=== PATIENT | female | born 1985 | race Caucasian/White ===

== ENCOUNTER 2017-08-19 18:39 | Emergency (ER) | payer OTHER, MEDICAID, SELFPAY ==
[2017-08-19 18:39] VITALS: BP 120/84; PULSE 84; RESP 16; TEMP 36.1; O2SAT 99; BMI 23.6
--- NOTE | 2017-08-19 19:30 | ED.VISSUMM ---
- ER Visit Summary Date of Service: 08/19/17 Chief Complaint: rash History of Present Illness: The patient is a 31 F presents with an itchy rash for 8 days. No systemic complaints. Physical Examination: Otherwise normal exam, she has raised blanching nonerythematous lesions all over her arms legs and trunk. Emergency Department Course and Treatment: This appears to be a benign rash, I cannot exclude a viral etiology, or more systemic issues like guttate psoriasis. Regardless she appears quite well and she has a dermatology appointment in 12 hours. She refuses steroids, she is nursing. She has taken Benadryl at home. I will discharge her in stable condition Treatment Plan: [] Disposition: Discharged stable condition Impression: Nonspecific dermatitis This note was generated with [employer] dictation software. It may contain incorrect words, spelling, and punctuation that were not noted in review of the chart prior to signing ED Disposition - Plan for ED Patient: Disposition: Home or Assisted Living Chief Complaint: Rash Referrals: Tabby Hay NP-C [Primary Care Provider] - Additional Instructions: If you have fever chills, shortness of breath or any other symptoms return to the emergency department otherwise follow up with your computer discovery teacher
[2017-08-19 19:47] VITALS: RESP 18
== END 2017-08-19 19:53 | disposition home or self-care (01) ==
PROVIDERS: Emergency Provider Emergency Medicine; Family Provider Nurse Practitioner Family; PCP Nurse Practitioner Family
DX: L30.9 Dermatitis, unspecified (principal)
CPT/HCPCS: 99282

== ENCOUNTER → 2018-06-23 15:01 | Outpatient (CLI) | payer OTHER, SELFPAY ==
[2017-12-10 10:25] VITALS: BMI 24.0
[2018-06-23 16:20] LABS: hCG Titer Quant., Serum < 1 mIU/mL (1-3)
== END ==
PROVIDERS: Family Provider Nurse Practitioner Family; PCP Nurse Practitioner Family; Referring Provider Nurse Practitioner Women's Health; Visit Provider Nurse Practitioner Women's Health
DX: Z34.90 Encounter for supervision of normal pregnancy, unspecified, unspecified trimester (principal)
CPT/HCPCS: 36415; 84702

== ENCOUNTER → 2018-10-17 11:04 | Outpatient (CLI) | payer OTHER, SELFPAY ==
[2018-10-17 09:58] VITALS: BMI 24.0
[2018-10-17 11:40] LABS: Estradiol 35.7 pg/mL; Follicle Stimulating Hormone 6.4 mIU/mL; Prolactin 5.3 ng/mL; T4 Free Direct 0.89 ng/dL (0.76-1.46); Thyroid Stim Hormone (TSH) 2.62 uIU/mL (0.358-3.74)
[2018-10-20 11:41] LABS: Testosterone Free 0.6 pg/mL (0.0-4.2)
== END ==
PROVIDERS: Family Provider Nurse Practitioner Family; PCP Nurse Practitioner Family; Referring Provider Obstetrics & Gynecology; Visit Provider Obstetrics & Gynecology
DX: N97.0 Female infertility associated with anovulation (principal); N91.2 Amenorrhea, unspecified
CPT/HCPCS: 36415; 82670; 83001; 84146; 84402; 84439; 84443

== ENCOUNTER → 2019-04-15 11:55 | Outpatient (CLI) | payer OTHER, SELFPAY ==
[2019-04-15 11:10] VITALS: BMI 25.3
[2019-04-15 14:13] LABS: Absolute Lymphocyte Count 1.79 X10^3/uL (0.83-4.51); Absolute Neutrophil Count 4.2 X10^3/uL (2.0-7.7); Basophil# 0.03 X10^3/uL; Basophil% 0.4 % (0-1); Eosinophil# 0.17 X10^3/uL; Eosinophils% 2.5 % (0-5); Hematocrit 41.6 % (37-47); Hemoglobin 13.5 g/dL (12.0-15.0); Lymphocyte # 1.79 X10^3/ul (4.0); Lymphocyte % 26.7 % (19-41); Mean Corp Hgb Conc 32.5 g/dL (32-36); Mean Corpuscular Hgb 28.9 pg (27.0-32.0); Mean Corpuscular Volume 89.1 fL (81-99); Mean Platelet Vol. 11.5 fl (6.2-12.0); Monocyte# 0.51 X10^3/uL; Monocyte% 7.6 % (0-10); NRBC Flagged by Analyzer 0 % (0-5); Neutrophil # 4.18 X10^3/uL (2.7-7.7); Neutrophil % 62.5 % (47-70); Platelet Count 221 K/mm3 (150-450); RBC Distribution Width CV 12.3 % (11.6-14.6); Red Blood Count 4.67 M/mm3 (4.2-5.4); White Blood Count 6.7 K/mm3 (4.4-11.0)
[2019-04-15 14:30] LABS: AST(SGOT) 11 U/L (15-37); Alanine Aminotransfer ALT/SGPT 24 U/L (13-56); Albumin, Serum 4.2 g/dL (3.2-5.0); Alkaline Phosphatase 89 U/L (45-117); Anion Gap 4 (5-15); BUN 11 mg/dL (7-18); BUN/Creat Ratio 16.4 RATIO (10-20); Calcium,Total 9.3 mg/dL (8.5-10.1); Chloride 108 mmol/L (98-107); Creatinine, Serum 0.67 mg/dL (0.55-1.02); EST Glomerular Filtration Rate 108 mL/min (>60); Est Glom Filt Rate - Afr Amer 130 mL/min (>60); Glucose 80 mg/dL (74-106); Protein, Total 8.2 g/dL (6.4-8.2); Sodium Level 140 mmol/L (136-145)
[2019-04-15 14:34] LABS: Vitamin D,25 Hydroxy 27.9 ng/mL (29.95-100.01)
== END ==
PROVIDERS: PCP Internal Medicine; Referring Provider Internal Medicine; Visit Provider Internal Medicine
DX: F41.1 Generalized anxiety disorder (principal); R53.81 Other malaise; R53.83 Other fatigue
CPT/HCPCS: 36415; 80053; 82306; 82652; 85025

== ENCOUNTER → 2019-10-14 11:57 | Outpatient (CLI) | payer OTHER, SELFPAY ==
[2019-10-14 11:11] VITALS: BMI 27.3
== END ==
PROVIDERS: PCP Internal Medicine; Referring Provider Internal Medicine; Visit Provider Internal Medicine
DX: J02.9 Acute pharyngitis, unspecified (principal)
CPT/HCPCS: 87880

== ENCOUNTER → 2019-10-30 12:20 | Outpatient (CLI) | payer OTHER, SELFPAY ==
[2019-10-30 11:52] VITALS: BMI 24.0
== END ==
PROVIDERS: PCP Internal Medicine; Visit Provider Nurse Practitioner Women's Health
DX: R10.2 Pelvic and perineal pain (principal); N89.8 Other specified noninflammatory disorders of vagina; N92.6 Irregular menstruation, unspecified
CPT/HCPCS: 87070; 87205

== ENCOUNTER → 2019-11-10 15:18 | Outpatient (CLI) | payer OTHER, SELFPAY ==
[2019-10-30 11:52] VITALS: BMI 24.0
--- NOTE | 2019-11-10 15:19 | US_ITS ---
STUDY: ULTRASOUND OF THE FEMALE PELVIS - COMPLETE REASON FOR EXAM: Female, 33 years old. IRREG MENSES AND PAIN LMP: 10/19/2019 TECHNIQUE: Transabdominal and endovaginal TECHNICAL QUALITY: Adequate. COMPARISON: None. FINDINGS: The uterus is retroverted and is in a midline position. The uterus measures 6.9 x 5.7 x 4.4 cm. Normal uterine cervix. The endometrium measures 8 mm in thickness, and is slightly heterogeneous. There is no demonstrated endometrial mass. There is no demonstrated myometrial mass. The patient does not have an I.U.D. The right ovary is visualized. The right ovary measures 4.5 x 2.3 x 2.5 cm. There is no right ovarian cyst or ovarian mass. There is no visualized right adnexal mass or complex lesion. There is normal arterial and normal venous vascularity. The left ovary is visualized. The left ovary measures 3.4 x 3.1 x 2.2 cm. There is a left adnexal cyst measuring 2.1 x 2.5 x 1.9 cm. There is normal arterial and normal venous vascularity. There is mild fluid in the cul-de-sac. The urinary bladder measures 652 cc in volume. US/Pelvic (Non ) IMPRESSION: Retroverted uterus. Slightly heterogeneous endometrium. Left adnexal cyst. Electronically Signed: Shaheen Cohen DO at 20:33 EDT Tel [phone], Service support ,
--- NOTE | 2019-11-10 15:19 | US_ITS ---
STUDY: ULTRASOUND OF THE FEMALE PELVIS - COMPLETE REASON FOR EXAM: Female, 33 years old. IRREG MENSES AND PAIN LMP: 10/19/2019 TECHNIQUE: Transabdominal and endovaginal TECHNICAL QUALITY: Adequate. COMPARISON: None. FINDINGS: The uterus is retroverted and is in a midline position. The uterus measures 6.9 x 5.7 x 4.4 cm. Normal uterine cervix. The endometrium measures 8 mm in thickness, and is slightly heterogeneous. There is no demonstrated endometrial mass. There is no demonstrated myometrial mass. The patient does not have an I.U.D. The right ovary is visualized. The right ovary measures 4.5 x 2.3 x 2.5 cm. There is no right ovarian cyst or ovarian mass. There is no visualized right adnexal mass or complex lesion. There is normal arterial and normal venous vascularity. The left ovary is visualized. The left ovary measures 3.4 x 3.1 x 2.2 cm. There is a left adnexal cyst measuring 2.1 x 2.5 x 1.9 cm. There is normal arterial and normal venous vascularity. There is mild fluid in the cul-de-sac. The urinary bladder measures 652 cc in volume. US/Transvaginal Non- IMPRESSION: Retroverted uterus. Slightly heterogeneous endometrium. Left adnexal cyst. Electronically Signed: Shaheen Cohen DO at 20:33 EDT Tel [phone], Service support ,
== END ==
PROVIDERS: PCP Internal Medicine; Referring Provider Nurse Practitioner Women's Health; Visit Provider Nurse Practitioner Women's Health
DX: R10.2 Pelvic and perineal pain (principal); N92.6 Irregular menstruation, unspecified
CPT/HCPCS: 76830; 76856

== ENCOUNTER → 2020-02-05 11:39 | Outpatient (CLI) | payer OTHER, SELFPAY ==
[2020-02-05 10:56] VITALS: BMI 27.4
--- NOTE | 2020-02-05 11:41 | RAD_ITS ---
STUDY: X-RAY - ORBITS REASON FOR EXAM: Female, 34 years old. Pt states her phone hit her eye last night -- bruising/redness of the right eye and partially swollen shut TECHNIQUE: 4 view(s) of the orbits were obtained. COMPARISON: None. FINDINGS: Normal bilateral orbits without a metallic orbital foreign body. Normal visualized facial bones. Normal paranasal sinuses. The soft tissue structures are unremarkable. RAD/Orbits Min 4 Views IMPRESSION: No demonstrated metallic orbital foreign body. The patient is cleared for an MRI examination. Electronically Signed: Breezy Zarate, at 12:14 EST , Service support ,
--- NOTE | 2020-02-05 11:41 | RAD_ITS ---
STUDY: X-RAY - FACIAL BONES REASON FOR STUDY: Female, 34 years old. Pt states her phone hit her eye last night -- bruising/redness of the right eye and partially swollen shut TECHNIQUE: 4 view(s) of the facial bones. COMPARISON: None. FINDINGS: Normal bilateral frontozygomatic and zygomatic-temporal arches. Normal bilateral medial and inferior orbital negro. Normal bilateral orbits. Normal visualized nasal bones. Normal anterior nasal spine. The remaining visualized osseous structures are normal. Normal visualized paranasal sinuses. RAD/Facial Bones min 3 Views IMPRESSION: Normal x-ray examination of the facial bones. Electronically Signed: Breezy Zarate, at 12:33 EST , Service support ,
== END ==
PROVIDERS: PCP Internal Medicine; Referring Provider Nurse Practitioner Family; Visit Provider Nurse Practitioner Family
DX: S05.91XA Unspecified injury of right eye and orbit, initial encounter (principal)
CPT/HCPCS: 70150; 70200

== ENCOUNTER → 2020-02-17 16:30 | Outpatient (CLI) | payer OTHER, SELFPAY ==
[2020-02-05 10:56] VITALS: BMI 27.4
[2020-02-17 17:39] LABS: Absolute Lymphocyte Count 2.15 X10^3/uL (0.83-4.51); Absolute Neutrophil Count 4.9 X10^3/uL (2.0-7.7); Basophil# 0.04 X10^3/uL; Basophil% 0.5 % (0-1); Eosinophil# 0.19 X10^3/uL; Eosinophils% 2.4 % (0-5); Hematocrit 40.3 % (37-47); Hemoglobin 13.1 g/dL (12.0-15.0); Lymphocyte # 2.15 X10^3/ul (4.0); Lymphocyte % 27.5 % (19-41); Mean Corp Hgb Conc 32.5 g/dL (32-36); Mean Corpuscular Volume 89.2 fL (81-99); Monocyte# 0.53 X10^3/uL; Monocyte% 6.8 % (0-10); NRBC Flagged by Analyzer 0 % (0-5); Neutrophil # 4.87 X10^3/uL (2.7-7.7); Neutrophil % 62.3 % (47-70); Platelet Count 268 K/mm3 (150-450); Red Blood Count 4.52 M/mm3 (4.2-5.4); White Blood Count 7.8 K/mm3 (4.4-11.0)
[2020-02-17 17:57] LABS: Erythrocyte Sedimentation Rate 10 mm/hr (0-20)
[2020-02-17 18:10] LABS: Estradiol 48.5 pg/mL; Prolactin 5.4 ng/mL; Vitamin D,25 Hydroxy 21.1 ng/mL
[2020-02-17 18:20] LABS: AST(SGOT) 17 U/L (15-37); Alanine Aminotransfer ALT/SGPT 25 U/L (13-56); Albumin, Serum 4.1 g/dL (3.2-5.0); Alkaline Phosphatase 94 U/L (45-117); Anion Gap 7 (5-15); BUN 13 mg/dL (7-18); BUN/Creat Ratio 20.2 RATIO (10-20); CRP < 2.90 mg/L (0.0-3.0); Chloride 104 mmol/L (98-107); Creatinine, Serum 0.64 mg/dL (0.55-1.02); EST Glomerular Filtration Rate 112 mL/min (>60); Est Glom Filt Rate - Afr Amer 135 mL/min (>60); Glucose 77 mg/dL (74-106); Potassium 3.7 mmol/L (3.5-5.1); Protein, Total 8.1 g/dL (6.4-8.2); Rheumatoid Factor < 10.0 IU/mL (<15); Sodium Level 138 mmol/L (136-145); T4 Free Direct 0.83 ng/dL (0.76-1.46); Thyroid Stim Hormone (TSH) 3.43 uIU/mL (0.358-3.74)
[2020-02-23 16:17] LABS: ANTINUCLEAR ANTIBODIES DIRECT Negative (Negative)
== END ==
PROVIDERS: Nurse Practitioner Family; Nurse Practitioner Women's Health; PCP Internal Medicine; Referring Provider Internal Medicine; Visit Provider Internal Medicine
DX: E55.9 Vitamin D deficiency, unspecified (principal); R53.83 Other fatigue; M19.90 Unspecified osteoarthritis, unspecified site; F41.1 Generalized anxiety disorder; R10.2 Pelvic and perineal pain; N92.6 Irregular menstruation, unspecified; Z20.828 Contact with and (suspected) exposure to other viral communicable diseases; Z13.29 Encounter for screening for other suspected endocrine disorder
CPT/HCPCS: 36415; 80053; 82306; 82670; 84146; 84439; 84443; 85025; 85652; 86038; 86140; 86225; 86235; 86431; 86769

== ENCOUNTER → 2020-02-29 09:21 | Outpatient (CLI) | payer OTHER, SELFPAY ==
[2020-02-05 10:56] VITALS: BMI 27.4
--- NOTE | 2020-02-29 09:23 | US_ITS ---
STUDY: SUPERFICIAL ULTRASOUND - CERVICAL REGION. REASON FOR EXAM: Female, 34 years old. NECK PAIN TECHNIQUE: A superficial ultrasound was performed with real-time and static whitman-scale imaging. COMPARISON: None. FINDINGS: The right and left side of the cervical region was examined by ultrasound. 2. Lymph nodes are seen in the right cervical region. The larger measures 2.6 times by 0.8 cm x 0.5 cm. This appears to be a benign lymph node. There is a 1.6 cm x 0.7 cm x 0.6 cm benign-appearing lymph node in the left cervical region. US/Head/Neck Soft Tissue IMPRESSION: Small bilateral benign-appearing cervical lymph nodes. Electronically Signed: Breezy Zarate, at 9:26 EST , Service support ,
== END ==
PROVIDERS: PCP Internal Medicine; Referring Provider Internal Medicine; Visit Provider Internal Medicine
DX: M54.2 Cervicalgia (principal)
CPT/HCPCS: 76536

== ENCOUNTER → 2020-10-06 11:55 | Outpatient (CLI) | payer OTHER, SELFPAY ==
[2020-10-06 11:18] VITALS: BMI 28.3
[2020-10-06 15:00] LABS: Absolute Lymphocyte Count 2.03 X10^3/uL (0.83-4.51); Absolute Neutrophil Count 4.5 X10^3/uL (2.0-7.7); Basophil# 0.04 X10^3/uL; Basophil% 0.5 % (0-1); Eosinophil# 0.29 X10^3/uL; Eosinophils% 3.8 % (0-5); Hematocrit 38.2 % (37-47); Hemoglobin 12.7 g/dL (12.0-15.0); Lymphocyte # 2.03 X10^3/ul (0.83-4.51); Lymphocyte % 26.7 % (19-41); Mean Corp Hgb Conc 33.2 g/dL (32-36); Mean Corpuscular Volume 87.2 fL (81-99); Mean Platelet Vol. 11.4 fl (6.2-12.0); Monocyte# 0.67 X10^3/uL; Monocyte% 8.8 % (0-10); NRBC Flagged by Analyzer 0 % (0-5); Neutrophil # 4.53 X10^3/uL (2.7-7.7); Neutrophil % 59.8 % (47-70); Platelet Count 253 K/mm3 (150-450); RBC Distribution Width CV 12.4 % (11.6-14.6); RBC Distribution Width SD 39.1 fl (35.1-43.9); Red Blood Count 4.38 M/mm3 (4.2-5.4); White Blood Count 7.6 K/mm3 (4.4-11.0)
[2020-10-06 15:22] LABS: Vitamin B12 376 pg/mL (211-911); Vitamin D,25 Hydroxy 35.7 ng/mL
[2020-10-06 15:29] LABS: AST(SGOT) 18 U/L (15-37); Alanine Aminotransfer ALT/SGPT 41 U/L (13-56); Alkaline Phosphatase 115 U/L (45-117); Anion Gap 8 (5-15); BUN 11 mg/dL (7-18); BUN/Creat Ratio 16.1 RATIO (10-20); Calcium,Total 9.2 mg/dL (8.5-10.1); Chloride 104 mmol/L (98-107); Creatinine, Serum 0.68 mg/dL (0.55-1.02); EST Glomerular Filtration Rate 104 mL/min (>60); Est Glom Filt Rate - Afr Amer 126 mL/min (>60); Globulin 3.9 g/dL (2.2-4.2); Glucose 98 mg/dL (74-106); Potassium 3.7 mmol/L (3.5-5.1); Protein, Total 7.9 g/dL (6.4-8.2); Sodium Level 138 mmol/L (136-145); Thyroid Stim Hormone (TSH) 2.72 uIU/mL (0.358-3.74)
[2020-10-06 15:30] LABS: Internal QC Validated? YES +Cl - CLEAR BKGD; Monotest Negative (Negative)
== END ==
PROVIDERS: PCP Internal Medicine; Referring Provider Nurse Practitioner Family; Visit Provider Nurse Practitioner Family
DX: R53.83 Other fatigue (principal); E55.9 Vitamin D deficiency, unspecified; E56.9 Vitamin deficiency, unspecified; R59.0 Localized enlarged lymph nodes
CPT/HCPCS: 36415; 80053; 82306; 82607; 84443; 85025; 86308

== ENCOUNTER → 2020-10-10 13:12 | Outpatient (CLI) | payer OTHER, SELFPAY ==
[2020-10-10 10:15] VITALS: BMI 28.5
[2020-10-12 20:03] LABS: HPV APTIMA, High Risk Negative (Negative)
== END ==
PROVIDERS: Visit Provider Nurse Practitioner Women's Health
DX: Z12.4 Encounter for screening for malignant neoplasm of cervix (principal)
CPT/HCPCS: 87624; 88175; G0145

== ENCOUNTER 2021-05-26 12:22 | Outpatient (CLI) | payer OTHER, SELFPAY ==
--- NOTE | 2021-05-26 12:27 | US_ITS ---
STUDY: ULTRASOUND OF THE FEMALE PELVIS - COMPLETE REASON FOR EXAM: Female, 35 years old. AUB LMP: Unknown. TECHNIQUE: Transabdominal and Transvaginal TECHNICAL QUALITY: Adequate. COMPARISON: None. FINDINGS: The uterus is retroverted and is in a midline position. The uterus measures 7.9 cm x 5.1 cm x 4.7 cm. Normal uterine cervix. The endometrium is thickened and measures 17.3 mm in thickness, and is hyperechoic. There is no demonstrated endometrial mass. There is no demonstrated myometrial mass. I.U.D. - The patient does not have an I.U.D. The right ovary is visualized. The right ovary measures 3 cm x 2.2 cm x 2.5 cm. There is no right ovarian cyst or ovarian mass. There is no visualized right adnexal mass or complex lesion. There is normal arterial and normal venous vascularity. The left ovary is visualized. The left ovary measures 3.5 cm x 2.6 cm x 2.2 cm. There is a 3.2 cm x 2.6 cm x 2 cm left adnexal cyst. There is no visualized left adnexal mass or complex lesion. There is normal arterial and normal venous vascularity. There is no fluid in the cul-de-sac. The pre void volume of the bladder was 43 ml. US/Transvaginal Non- IMPRESSION: Thickened endometrium measuring 17.3 mm. Left adnexal cyst measuring 3.2 cm x 2.6 x 2 cm. Electronically Signed: Breezy Zarate MD at 14:33 EDT ,
--- NOTE | 2021-05-26 12:27 | US_ITS ---
STUDY: ULTRASOUND OF THE FEMALE PELVIS - COMPLETE REASON FOR EXAM: Female, 35 years old. AUB LMP: Unknown. TECHNIQUE: Transabdominal and Transvaginal TECHNICAL QUALITY: Adequate. COMPARISON: None. FINDINGS: The uterus is retroverted and is in a midline position. The uterus measures 7.9 cm x 5.1 cm x 4.7 cm. Normal uterine cervix. The endometrium is thickened and measures 17.3 mm in thickness, and is hyperechoic. There is no demonstrated endometrial mass. There is no demonstrated myometrial mass. I.U.D. - The patient does not have an I.U.D. The right ovary is visualized. The right ovary measures 3 cm x 2.2 cm x 2.5 cm. There is no right ovarian cyst or ovarian mass. There is no visualized right adnexal mass or complex lesion. There is normal arterial and normal venous vascularity. The left ovary is visualized. The left ovary measures 3.5 cm x 2.6 cm x 2.2 cm. There is a 3.2 cm x 2.6 cm x 2 cm left adnexal cyst. There is no visualized left adnexal mass or complex lesion. There is normal arterial and normal venous vascularity. There is no fluid in the cul-de-sac. The pre void volume of the bladder was 43 ml. US/Pelvic (Non ) IMPRESSION: Thickened endometrium measuring 17.3 mm. Left adnexal cyst measuring 3.2 cm x 2.6 x 2 cm. Electronically Signed: Breezy Zarate MD at 14:33 EDT ,
[2021-05-26 14:12] LABS: Estradiol 50.2 pg/mL; Follicle Stimulating Hormone 6.3 mIU/mL; Luteinizing Hormone 12.9 mIU/mL; Prolactin 9.4 ng/mL; Thyroid Stim Hormone (TSH) 2.81 uIU/mL (0.358-3.74)
[2021-05-26 14:22] LABS: NATERA MAILED SPECIMEN
== END 2021-05-26 23:59 | disposition home or self-care (01) ==
PROVIDERS: PCP Internal Medicine; Referring Provider Obstetrics & Gynecology; Visit Provider Obstetrics & Gynecology
DX: N93.9 Abnormal uterine and vaginal bleeding, unspecified (principal); Z80.3 Family history of malignant neoplasm of breast
CPT/HCPCS: 36415; 76830; 76856; 82627; 82670; 83001; 83002; 84146; 84443; 82626

== ENCOUNTER → 2021-06-16 | Outpatient (CLI) | payer OTHER, SELFPAY ==
--- NOTE | 2021-06-16 09:00 | BI_ITS ---
MAMMOGRAPHY - BILATERAL DIAGNOSTIC REASON FOR EXAM: Female, 35 years old. bilateral breast lump PERTINENT HISTORY: Non-contributory. TECHNIQUE: Digital examination. Mediolateral oblique (MLO) and craniocaudad (CC) views of both breasts were obtained. CAD: CAD was performed on this study. COMPARISON: None. FINDINGS: Breast Composition: The breasts are heterogeneously dense, which may obscure small masses. There are no dominant masses or suspicious calcifications. No other significant abnormalities are identified. BI/DIAG MAMM W/CAD, BILAT IMPRESSION: Stable bilateral diagnostic mammogram. ASSESSMENT CATEGORY: BIRADS Category 1: Negative. A letter regarding these results will be sent to the patient by the facility within 30 days. FOLLOW UP RECOMMENDATION: Yearly follow up mammogram recommended. (A) Approximately 10% of breast cancers are not detected by mammography. A normal mammogram should not delay biopsy of a clinically suspicious abnormality. Electronically Signed: Sam Celaya MD at 9:58 EDT ,
== END | disposition home or self-care (01) ==
PROVIDERS: PCP Internal Medicine; Visit Provider Obstetrics & Gynecology
DX: R92.2 Inconclusive mammogram (principal); N63.0 Unspecified lump in unspecified breast
CPT/HCPCS: 77062; 77066; G0279

== ENCOUNTER → 2021-06-16 | Outpatient (CLI) | payer OTHER, SELFPAY ==
--- NOTE | 2021-06-16 | EMB_PTH ---
PATIENT: YAMEL BRIAN LOC: [facility] U#:[id number] AGE/SX: 35/F ROOM: RE06/16/[address]: Dr. Rosalie Bales DO : 1985 BED: DIS: 06/16/2021 SPEC #: [id number] RECD: 06/16/21 12:55 STATUS: ISI WILCOX #: [id number] HIREN: 06/16/21 00:[address]: Rosalie Bales DEPT: SURGICAL PATHOLOGY RECD BY: Azael Carranza ENTERED: 06/16/21 12:55 SP TYPE: ENDOM BX/C [facility] DR: Dr. Eugenia Velazquez MD Tissues: Endometrium, NOS Procedures: Surgery Specimen Level IV HEADER OPERATION: Endometrial biopsy PRE-OP DIAGNOSIS: Abnormal uterine bleeding TISSUE SUBMITTED: Endometrial lining MICROSCOPIC DIAGNOSIS Endometrial biopsy: Scant minute fragments of benign ecto- and endocervical epithelium and mucous. See comment. SJ:siat 06/19/2021 COMMENT Endometrial tissue is not identified. Clinical correlation and appropriate follow up are necessary. MICROSCOPIC DESCRIPTION Slides are reviewed. GROSS DESCRIPTION Received is one container labeled with the patient's name and not further designated. The specimen consists of multiple fragments of talley hemorrhagic mucoid tissue that in aggregate measure 3 x 2.5 x 0.3 cm. The specimen is totally submitted in one cassette. / ELIZABETH:sita 06/16/2021 TC: Cannot code CPT: 04234
== END | disposition home or self-care (01) ==
LOC: LABSPEC 11:33
PROVIDERS: PCP Internal Medicine; Referring Provider Obstetrics & Gynecology; Visit Provider Obstetrics & Gynecology
DX: N93.9 Abnormal uterine and vaginal bleeding, unspecified (principal)
CPT/HCPCS: 88305

== ENCOUNTER → 2021-12-18 | Outpatient (CLI) | payer OTHER, SELFPAY ==
--- NOTE | 2021-12-18 15:53 | US_ITS ---
EXAM: US PELVIS TRANSABDOMINAL AND TRANSVAGINAL, COMPLETE CLINICAL INDICATION: AUB TECHNIQUE: Transabdominal and transvaginal pelvic ultrasound was performed with grayscale and color Doppler imaging. Transvaginal imaging was used for better evaluation of the endometrium and adnexa. This report was created using [employer] report [employer] technology. COMPARISON: None. FINDINGS: Anteverted retroflexed uterus. Uterus measures 10.9 x 6.1 x 4.9 cm with endometrial complex thickness of 11.9 mm with no focal abnormalities associated. No uterine fibroids. Few nabothian cysts of cervix are benign. No adnexal masses. Small free fluid in the pelvic cul-de-sac. There is a heterogeneous and irregular lesion measuring up to 1.4 cm involving the right ovary. This probably represents an involuting corpus luteum cyst. The right ovary itself measures 2.8 x 2.2 x 2.9 cm. There is a 2.9 cm simple cyst involving the left ovary. Left ovary measures 4.0 x 2.9 x 2.7 cm. Visualized bladder is unremarkable. US/Transvaginal Non- IMPRESSION: 1. 12 mm endometrial complex thickness which is uniform in appearance is likely benign. 2. No other findings to explain abnormal uterine bleeding 3. Heterogeneous and irregular lesion measuring up to 1.4 cm involving the right ovary. This probably represents an involuting corpus luteum cyst. 4. Small amount of free fluid in pelvic cul-de-sac is nonspecific . Electronically Signed: Iggy Garcia MD at 20:39 EDT ,
--- NOTE | 2021-12-18 15:53 | US_ITS ---
EXAM: US PELVIS TRANSABDOMINAL AND TRANSVAGINAL, COMPLETE CLINICAL INDICATION: AUB TECHNIQUE: Transabdominal and transvaginal pelvic ultrasound was performed with grayscale and color Doppler imaging. Transvaginal imaging was used for better evaluation of the endometrium and adnexa. This report was created using [employer] report generation technology. COMPARISON: None. FINDINGS: Anteverted retroflexed uterus. Uterus measures 10.9 x 6.1 x 4.9 cm with endometrial complex thickness of 11.9 mm with no focal abnormalities associated. No uterine fibroids. Few nabothian cysts of cervix are benign. No adnexal masses. Small free fluid in the pelvic cul-de-sac. There is a heterogeneous and irregular lesion measuring up to 1.4 cm involving the right ovary. This probably represents an involuting corpus luteum cyst. The right ovary itself measures 2.8 x 2.2 x 2.9 cm. There is a 2.9 cm simple cyst involving the left ovary. Left ovary measures 4.0 x 2.9 x 2.7 cm. Visualized bladder is unremarkable. US/Pelvic (Non ) IMPRESSION: 1. 12 mm endometrial complex thickness which is uniform in appearance is likely benign. 2. No other findings to explain abnormal uterine bleeding 3. Heterogeneous and irregular lesion measuring up to 1.4 cm involving the right ovary. This probably represents an involuting corpus luteum cyst. 4. Small amount of free fluid in pelvic cul-de-sac is nonspecific . Electronically Signed: Iggy Garcia MD at 20:39 EDT ,
== END | disposition home or self-care (01) ==
LOC: US 15:51
PROVIDERS: Referring Provider Obstetrics & Gynecology; Visit Provider Obstetrics & Gynecology
DX: R93.89 Abnormal findings on diagnostic imaging of other specified body structures (principal)
CPT/HCPCS: 76830; 76856

== ENCOUNTER 2022-02-13 13:41 | Observation (INO) | payer OTHER, SELFPAY ==
[2022-02-06 17:17] LABS: Absolute Lymphocyte Count 2.33 X10^3/uL (0.83-4.51); Absolute Neutrophil Count 5.7 X10^3/uL (2.0-7.7); Basophil# 0.06 X10^3/uL; Basophil% 0.7 % (0-1); Eosinophil# 0.24 X10^3/uL; Eosinophils% 2.7 % (0-5); Hematocrit 35.8 % (37-47); Hemoglobin 12.5 g/dL (12.0-15.0); Lymphocyte # 2.33 X10^3/ul (0.83-4.51); Lymphocyte % 25.7 % (19-41); Mean Corp Hgb Conc 34.9 g/dL (32-36); Mean Corpuscular Hgb 30.6 pg (27.0-32.0); Mean Corpuscular Volume 87.7 fL (81-99); Mean Platelet Vol. 10.8 fl (6.2-12.0); Monocyte# 0.73 X10^3/uL; Monocyte% 8.1 % (0-10); NRBC Flagged by Analyzer 0 % (0-5); Neutrophil # 5.66 X10^3/uL (2.7-7.7); Neutrophil % 62.5 % (47-70); Platelet Count 319 K/mm3 (150-450); RBC Distribution Width CV 12.8 % (11.6-14.6); RBC Distribution Width SD 40.3 fl (35.1-43.9); Red Blood Count 4.08 M/mm3 (4.2-5.4); White Blood Count 9.1 K/mm3 (4.4-11.0)
[2022-02-06 17:28] LABS: Prothrombin Time (Protime)PT. 12.4 SECONDS (11.7-14.9)
[2022-02-06 17:29] LABS: Partial Thromboplast Time 30.7 Seconds (24.1-36.2)
[2022-02-06 19:33] LABS: AST(SGOT) 20 U/L (15-37); Alanine Aminotransfer ALT/SGPT 33 U/L (13-56); Albumin, Serum 3.5 g/dL (3.2-5.0); Alkaline Phosphatase 106 U/L (45-117); Bilirubin, Direct < 0.05 mg/dL (0.00-0.30); Magnesium 2.3 mg/dL (1.6-2.6); Protein, Total 7.5 g/dL (6.4-8.2)
--- NOTE | 2022-02-12 11:40 | PCM.HP.BLA ---
History and Physical Date of Admission: 02/13/22 Intake Vital Signs ? 02/01/2212:50 02/01/2212:50 Height 5 ft 3 in 5 ft 3 in Weight: 166 lb ? BMI 29.4 ? BP 111/72 ? Intake Visit Reasons:?pre op International Sourcing Manager Required: No Is patient in pain?: No Allergies amoxicillin Allergy (Intermediate, Verified 01/31/22 12:49) Unknownadhesive tape Allergy (Mild, Verified 01/31/22 12:49) Rashlatex Allergy (Mild, Verified 01/31/22 12:49) RashPenicillins Allergy (Verified 01/31/22 12:49) Unknown Medications multivitamin 1 tab PO DAILY 04/15/19 [History Confirmed 01/31/22] escitalopram oxalate 5 mg tablet (Lexapro) 5 mg PO DAILY #90 tabs 07/06/21 [Rx Confirmed 01/31/22] medroxyprogesterone 5 mg tablet (Provera) 5 mg PO DAILY 90 days #90 tabs 12/06/21 [Rx Confirmed 01/31/22] omeprazole 20 mg capsule,delayed release 20 mg PO DAILY 01/31/22 [History Confirmed 01/31/22] Post menopausal: No Patient : No : No [facility] Medical History? Anxiety Chronic headaches Fatigue GERD (gastroesophageal reflux disease) Hives Hypersomnia pre cancerous area on skin Seasonal allergies Vitamin deficiency Surgical History? H/O section Family History? Grandfather Arthritis Heart diseaseGrandmother Breast cancer Colon cancer Uterine cancerMother Melanoma PCOS (polycystic ovarian syndrome) Social History? number of children:? 1 current occupational status:? unemployed Smoking Status:? Never smoker alcohol intake:? current alcohol intake frequency: holidays/special occasions only substance use type:? does not use what type of physical activity do you participate in:? walking seatbelt use:? always do you feel safe at home:? Yes additional social history:? ? [employer] ? ? [employer] HPI pre op Details: YAMLE BRIAN is a 36 year old ? who presents for pre-op robotic hysterectomy. She was found to have an enlarging uterus as evident on ultrasound from may of 2021 to november of 2021. She has tried ocps and provera without relief from unpredictable heavy periods. She states that she is 100% sure she does not want another baby. ultrasound: TECHNIQUE:? Transabdominal and transvaginal pelvic ultrasound was performed with grayscale and color Doppler imaging.? Transvaginal imaging was used for better evaluation of the endometrium and adnexa.? This report was created using [employer] report [employer] technology. COMPARISON:? None. FINDINGS: Anteverted retroflexed uterus.? Uterus measures 10.9 x 6.1 x 4.9 cm with endometrial complex thickness of 11.9 mm with no focal abnormalities associated.? No uterine fibroids. Few nabothian cysts of cervix are benign. No adnexal masses.? Small free fluid in the pelvic cul-de-sac. There is a heterogeneous and irregular lesion measuring up to 1.4 cm involving the right ovary.? This probably represents an involuting corpus luteum cyst.? The right ovary itself measures 2.8 x 2.2 x 2.9 cm. There is a 2.9 cm simple cyst involving the left ovary.? Left ovary measures 4.0 x 2.9 x 2.7 cm. Visualized bladder is unremarkable. US/Transvaginal Non- IMPRESSION: ? 1.? 12 mm endometrial complex thickness which is uniform in appearance is likely benign. ? 2.? No other findings to explain abnormal uterine bleeding ? 3.? Heterogeneous and irregular lesion measuring up to 1.4 cm involving the right ovary.? This probably represents an involuting corpus luteum cyst. ? 4.? Small amount of free fluid in pelvic cul-de-sac is nonspecific . ? History ? ? ? 1 ? Elective abortions ? Hx Para ? ? ? 1 ? Spontaneous abortions ? Hx # Term Pregnancies ? Ectopic pregnancies ? Hx # Pregnancies ? Multiple births ? # of living children ? ? ? 1 Past Pregnancies Del. Date Name GA/Weeks Outcome Route Bth Weight Gen Labor Lgth Anesthesia Del Lenora Provider FOB 12/20/16 Moraes 36 ? 5 lbs 9 oz. Male 14 hours epidural [facility] Dr. Netta Ureña ? Delivery Date: 12/20/16? Last Updated by: Dorie Tello ? ? ? Pre eclampsia ? ? ? ROS Const ROS Unobtainable: All systems reviewed & are unremarkable except as noted in H Resp Resp: Reports system reviewed and no additional complaints, except as documented; Denies cough GI GI: Reports as per HPI Psych Psych: Reports system reviewed and no additional complaints, except as documented Exam Const General: cooperative, healthy appearing, comfortable and no acute distress Resp Effort & Inspection: normal respiratory effort Skin General: no rashes or lesions noted Psych Appearance: grossly normal Speech and Movement: speech and movement normal Coding Level of Care Code Off vis,est,level 4 Diagnoses Abnormal uterine bleeding? N93.9 Enlarged uterus? N85.2 Assessment and Plan Assessment and Plan (1) Abnormal uterine bleeding: ?Status:?Acute (2) Enlarged uterus: ?Status:?Acute Plan After discussing the patient's diagnosis and treatment plan options, patient wishes to proceed with surgical management.? I have discussed with the patient the risks, benefits, and alternatives of the procedure which include but are not limited to risks of anesthesia, bleeding, infection, possible damage to bowel, bladder, or surrounding vasculature which could lead to additional surgery to evaluate any complications.? Patient agrees to procedure and wishes to proceed.? ACOG/uptodate references given for additional information regarding procedure. plan for total robotic hysterectomy, bilateral salpingectomy, cysto. pt gets very nauseated after surgery. will send rx for zofran with post op meds? 01/31/22 [id number]
[2022-02-13] VITALS (14 sets, daily range): BP systolic 95–124; BP diastolic 53–83; PULSE 80–100; RESP 16–18; TEMP 36.1–36.8; O2SAT 95–100; BMI 28.9
[2022-02-13 05:57] LABS: Internal QC Validated? YES +Cl - CLEAR BKGD; Pregnancy, Urine Negative Negative
[2022-02-13] MEDS: Phenazopyridine 95 MG Tablet 190 MG PO (06:33)
[2022-02-13] MEDS: Acetaminophen 500 MG Tablet 1000 MG PO ×3 (06:33→17:39)
[2022-02-13] MEDS: Celecoxib 200 MG Capsule 400 MG PO (06:33)
[2022-02-13] MEDS: dexAMETHasone 10 MG/ML Vial 8 MG IV (06:33)
[2022-02-13] MEDS: Gabapentin 600 MG Tablet PO (06:33)
[2022-02-13] MEDS: Magnesium 1 GM over 15 mins IV (06:34)
[2022-02-13] MEDS: Lactated Ringers 1,000 ML 40 ML IV (07:30)
--- NOTE | 2022-02-13 07:30 | HYST_PTH ---
PATIENT: YAMEL BRIAN LOC: [facility] U#:[id number] AGE/SX: 36/F ROOM: MS317 RE02/13/[address]: Dr. Rosalie Bales DO : 1985 BED: 1 DIS: 02/14/2022 SPEC #: [id number] RECD: 02/13/22 11:36 STATUS: ISI BENNETTTom #: [id number] HIREN: 02/13/22 07:[address]: Rosalie Bales DEPT: SURGICAL PATHOLOGY RECD BY: Marci Edwards ENTERED: 02/13/22 13:03 SP TYPE: HYSTERECT OTHR DR: Dr. Kasey Thakur DO Tissues: Uterus, NOS Procedures: Surgery Specimen Level V HEADER OPERATION: ERAS, lap robotic hysterectomy, converted to vaginal, bilateral salpingectomy PRE-OP DIAGNOSIS: Abnormal uterine bleeding, enlarged uterus TISSUE SUBMITTED: Uterus, bilateral fallopian tubes MICROSCOPIC DIAGNOSIS Uterus, hysterectomy: Cervix ? focal squamous metaplasia and mild chronic inflammation. Endometrium ? proliferative endometrium. Myometrium ? focal superficial adenomyosis. Benign paratubal cysts. AM:sita 02/14/2022 MICROSCOPIC DESCRIPTION Slides are reviewed. GROSS DESCRIPTION Received in fixative is one container labeled with the patient's name and designated uterus, bilateral fallopian tubes. The specimen consists of a hysterectomy specimen consisting of uterus with cervix and detached bilateral fallopian tubes. The uterus with cervix weighs 94 gm and measures 9.5 x 6.5 x 4 cm. The serosal surface is talley, glistening. The ectocervical mucosa is unremarkable. The external os is oval and patulous in contour. The endocervical canal measures 0.5 cm in length and the endocervical mucosa is unremarkable. The triangular endometrial cavity measures 4 cm in length and 2.5 cm in width. The endometrium is talley, glistening without any mass lesion and measures 0.1 cm in thickness. Sections of the uterine wall do not reveal any mass lesion and it measures 2.5 cm in thickness. The fallopian tubes are not identified as right or left and measures 7 cm in length and 1 cm in diameter and 4.5 cm in length and 0.8 cm in diameter. The fimbrial end is identified. Sections reveal unremarkable cut surfaces. Adjacent to one fallopian tube reveals a collapsed cyst measuring 2 cm in greatest dimension. The cyst wall is smooth without any papillation. The cyst wall measures 0.1 cm in thickness. Federal Law Clerk sections are submitted in nine cassettes as follows: 1 - anterior cervix, 2 - posterior cervix, 3 & 4 - anterior uterine wall, 5 & 6 - posterior uterine wall, 7 - one fallopian tube, 8 - second fallopian tube, 9??cyst adjacent to the second fallopian tube, entirely submitted. / ELIZABETH:sita 02/13/2022 TC:5 CPT: 92001
[2022-02-13] MEDS: Clindamycin 900 MG/50 ML BAG 75 MG IV (07:32)
--- NOTE | 2022-02-13 07:45 | DCINST_ITS ---
Discharge Instructions Diet Discharge Diet: No restrictions Activity May resume sexual activity in: 6 weeks Weight Bearing Status: Full weight bearing Dressing / Incision Call your doctor if your incision/area has: Continuous Slow Oozing, Sudden Increased Bleeding, Increased Pain/ Swelling, Increased Redness and Foul Smelling Discharge Call your doctor if you observe: Fever of 101 or Higher, Using more than 1 pad per hour, Shortness of breath, Chest pain and Uncontrolled pain Suture Line Care: Avoid Pulling/Pushing and Avoid Pinching/Bending Remove Dressing in: 1 week (if present) Cleanse incision/area with: Soap & Water and Keep Dressing Clean & Dry Follow Up Care Please Follow Up With: Rosalie Bales DO When: Call to make an appointment with your doctor for a postop visit in 2 and 6 weeks Test Results: Test results from this visit will be discussed in further detail at your follow- up appointment, if applicable. Discharge Plan Admission Primary Reason for Your Visit: hysterectomy Attending Provider: Rosalie Bales Primary Care Provider: Kasey Thakur Discharge Orders/Prescriptions Prescriptions: New ondansetron 4 mg tablet,disintegrating 4 mg PO Q8H PRN (Reason: nausea and vomiting) Qty: 30 0RF oxycodone-acetaminophen [Percocet] 5-325 mg tablet 1 tab PO Q4H PRN (Reason: pain) 7 Days Qty: 30 0RF naproxen 500 mg tablet 500 mg PO BID PRN (Reason: pain) 10 Days Qty: 40 0RF Continued multivitamin Tablet 1 tab PO DAILY omeprazole 20 mg capsule,delayed release(DR/EC) 20 mg PO DAILY escitalopram oxalate [Lexapro] 5 mg tablet 5 mg PO DAILY Qty: 90 3RF Referrals / Follow Up: Kasey Thakur DO [Primary Care Provider] - Disposition Disposition (needs filled in before D/C Order can be placed): Home, Self Care
[2022-02-13 08:25] LABS: Bedside Glucose 94 mg/dL (74-106)
[2022-02-13] MEDS: Bupivacaine 0.25% 30 ML Vial (10:00)
[2022-02-13] MEDS: Ondansetron 4 MG/2 ML Vial IV (10:40)
--- NOTE | 2022-02-13 10:59 | PCM.OP.BLANK ---
Problems Associated Problem List Diagnoses (1) Status post hysterectomy: (2) Abnormal uterine bleeding: (3) Family history of uterine cancer: (4) Family history of breast cancer: (5) Family history of ovarian cancer: (6) Enlarged uterus: Operative Report Date of Procedure: 02/13/22 Preoperative diagnosis:menorrhagia, enlarged uterus, history of prior pelvic surgery/ section Postoperative diagnosis: menorrhagia, enlarged uterus, history of prior pelvic surgery/ section Procedure: Total robotic hysterectomy [bilateral salpingooophorectomy] and cystoscopy Anesthesia: General endotracheal intubation Estimated blood loss: 700cc Urine output: 300cc Drains: None Implanted material: None Complications: None Findings: 10 size uterus, stenotic cervix, normal appearing ovaries and tubes. On exploration of the abdominal cavity the uterus, adnexa, bowel, and liver were found to be normal. Cystoscopy showed no evidence of leaking at approximately 250 cc of normal saline, positive ureteral orifices and jet flow are seen and no suture material was appreciated in the bladder, there is bruising on the posterior aspect of the bladder peritoneum. There was also a small internal scratched area at the dome of the bladder away from the ureters and measured approximately 3-4 mm in size. Specimens removed: Uterus and cervix, Bilateral tubes Reason for surgery: This is a 36-year-old G1, P1 who presented to my office with a history of heavy uterine bleeding .she has tried conservative therapy without relief and states that she has always been a bleeder and she is no longer interested in childbearing. the planned procedure is for a robotic hysterectomy the risks benefits and alternatives were discussed with the patient the patient had a clear understanding of the procedure and a consent form was signed. Procedure: The patient was placed in the dorsal low lithotomy position and prepped and draped in the normal sterile fashion both abdominally and in the perineum. Her legs were placed in stirrups a Sun catheter was inserted into the urethra without difficulty. A weighted speculum was placed in the vagina and a single-tooth tenaculum was used to grasp the anterior lip of the cervix. Attempt was made to insert an advincula uterine manipulator through the cervix, however the cervix was noted to be stenotic and after multiple attempts with dilation complete insertion was not possible. The manipulator was pulled back and sutured into place on the cervix to achieve minimal uterine movement. it was then tied into place at the 2 and 10:00 locations on the cervix. Gloves were changed and attention was turned towards the abdomen. Approximately 23 cm above the pubic symphysis in the midline, and after Marcaine injection, a [8] mm incision was made. An 8 mm trocar was inserted through the laparoscope, then inserted into the abdomen under direct visualization using the laparoscope. Good abdominal placement was noted and no complications were appreciated. An air seal device was utilized to create pneumoperitoneum. At 12 cm lateral to the midline on the left and right sides 8 mm accessory ports were placed. Next a left upper quadrant 8 mm insurance underwriting assistant port site was placed. The patient was placed in steep Trendelenburg position. The robot was docked. There was a small omental adhesion to the anterior abdominal wall that was removed using the vessel sealer device. The intentional uterine perforation that was created for minimal movement of the uterus was noted to be anterior and close to the bladder flap. The peritoneal edge around the bladder was noted to be bruised but not bleeding. The hysterectomy was initiated first by taking down the round ligament on each side using the vessel sealer device. [The peritoneum between the round ligament and the IP ligament was opened using electrocautery and extended the length of the IP ligament. The IP ligament was then taken down using the vessel sealer device. These areas were freed without complication] the broad ligament was then and taken down using the vessel sealer device. Next the bladder flap was taken down without complication. At this point the uterine vessels were taken down further starting from the ascending branch, dissecting along the edges of the cervix to the level of the cervical vaginal junction with hemostasis appreciated. At this point however the cup on the cervix was no longer palpable and the procedure was converted to vaginal approach. A speculum was placed in the vagina and a circumferential incision was made around the cervix. Chris clamps were placed on the uterosacral ligaments and cardinal ligaments then suture ligated with an 0 Vicryl suture. The uterus was then delivered through the vagina and attention was then turned back to the robot device for cuff closure. t The remaining vaginal cuff was then closed using OV lock suture. This was performed in a running technique. Excellent hemostasis was obtained and good closure was noted. Irrigation was then performed. Operative sites were noted to be somewhat oozing. 2-0 Vicryl suture was placed at the right aspect of the vaginal cuff for hemostasis. This point a sponge stick was placed in the vagina and this created more bleeding at the right side of the cuff. This was again suture-ligated with a 2-0 Vicryl and excellent hemostasis was noted. Fibrillar was placed on the small oozing areas that were not able to be suture ligated or cauterized. The pressure was brought down from 15 mmHg down to 10 then down to 5 and hemostasis was noted. A cystoscopy was performed with a 70 degree cystoscope through the urethra into the bladder without complication. The bladder was instilled with approximately 250 cc of normal saline. Intraoperative images were made. Ureteral orifices and jets were identified. No suture material was appreciated in the bladder. There is a small scratch on the inside of the bladder at the dome approximately 3 to 4 mm in size that was not bleeding and was not through and through the bladder . The bladder was then drained and cystoscope was removed. The abdominal cavity was again examined using the laparoscope after the robot was undocked. All operative sites were noted to be hemostatic. The trochars were removed under direct visualization without complication and pneumoperitoneum was reduced. At this point the skin was then closed using 4-0 Monocryl subcuticular stitch and sealed with surgical glue. The patient tolerated the procedure well sponge lap and needle counts were correct x2 the patient was taken to the recovery room in stable condition. Multi Select Codes Urinary/Genital Urinary/Genital CPT Codes: 52162 Cystoscopy and 47878 TVH+BS/O <250gr uterus
[2022-02-13 11:40] LABS: Absolute Lymphocyte Count 0.74 X10^3/uL (0.83-4.51); Absolute Neutrophil Count 8.4 X10^3/uL (2.0-7.7); Basophil# 0.03 X10^3/uL; Basophil% 0.3 % (0-1); Eosinophil# 0.01 X10^3/uL; Eosinophils% 0.1 % (0-5); Hematocrit 31.9 % (37-47); Lymphocyte # 0.74 X10^3/ul (0.83-4.51); Lymphocyte % 7.9 % (19-41); Mean Corp Hgb Conc 31.3 g/dL (32-36); Mean Corpuscular Hgb 28.2 pg (27.0-32.0); Mean Corpuscular Volume 89.9 fL (81-99); Mean Platelet Vol. 10.5 fl (6.2-12.0); Monocyte# 0.18 X10^3/uL; Monocyte% 1.9 % (0-10); NRBC Flagged by Analyzer 0 % (0-5); Neutrophil # 8.38 X10^3/uL (2.7-7.7); Neutrophil % 89.2 % (47-70); Platelet Count 228 K/mm3 (150-450); RBC Distribution Width CV 12.9 % (11.6-14.6); RBC Distribution Width SD 42.4 fl (35.1-43.9); Red Blood Count 3.55 M/mm3 (4.2-5.4); White Blood Count 9.4 K/mm3 (4.4-11.0)
[2022-02-13] MEDS: Lactated Ringers 1,000 ML 100 ML IV (16:19)
[2022-02-13] MEDS: Docusate Sodium 100 MG Capsule PO (22:02)
[2022-02-14] VITALS (7 sets, daily range): BP systolic 92–112; BP diastolic 58–70; PULSE 74–89; RESP 14–18; TEMP 36.6–36.9; O2SAT 97–100
[2022-02-14] MEDS: Acetaminophen 500 MG Tablet 1000 MG PO ×3 (00:54→15:47)
[2022-02-14] MEDS: Lactated Ringers 1,000 ML 100 ML IV (02:32)
[2022-02-14 05:47] LABS: Hematocrit 27.5 % (37-47); Hemoglobin 8.7 g/dL (12.0-15.0); Mean Corp Hgb Conc 31.6 g/dL (32-36); Mean Corpuscular Hgb 28.4 pg (27.0-32.0); Mean Corpuscular Volume 89.9 fL (81-99); Platelet Count 271 K/mm3 (150-450); RBC Distribution Width CV 13.2 % (11.6-14.6); RBC Distribution Width SD 42.5 fl (35.1-43.9); Red Blood Count 3.06 M/mm3 (4.2-5.4); White Blood Count 10.4 K/mm3 (4.4-11.0)
--- NOTE | 2022-02-14 07:24 | NURSING ---
Emergency Documentation
[2022-02-14] MEDS: Docusate Sodium 100 MG Capsule PO (08:14)
--- NOTE | 2022-02-14 09:18 | PN.OBGYN_ITS ---
Subjective Subjective Patient is laying in bed comfortably without complaints. She states that she slept on an off during the night. She states that her bladder pain is now gone but she is starting to have some bloating and cramping in her pelvis area. She reports feeling rumbles in her stomach but no flatus yet. I have discussed with her that her hg did drop more over night but that this was to be expected when combining the amount of blood loss and IV fluids over night. She denies feeling dizzy or weak. Objective Data Objective Data Vital Signs: Vital Signs Temp Pulse Resp BP Pulse Ox O2 Del Method O2 Flow Rate 98.0 F 81 18 103/63 97 Room Air 4 02/14/22 08:07 02/14/22 08:07 02/14/22 08:07 02/14/22 08:07 02/14/22 09:02 02/14/22 09:02 02/14/22 05:28 Oxygen Flow Rate (L/min) 4 Oxygen Delivery Method Room Air Weight: 163 lb 2.273 oz Body Mass Index (BMI) 28.9 Intake & Output: Intake and Output for Last 24 Hours 02/12/22 02/13/22 02/14/22 23:59 23:59 23:59 Intake Total 1272 / 1272 1491.17 / 1491.17 Output Total 800 / 2200 2250 / 2250 Balance 472 / -928 -758.83 / -758.83 Lab / Micro Data Result Diagrams: 02/14/22 05:06 Labs: Laboratory Results - last 24 hr 02/13/22 11:35: WBC 9.4, RBC 3.55 L, Hgb 10.0 L, Hct 31.9 L, MCV 89.9, MCH 28.2, MCHC 31.3 L, RDW Std Deviation 42.4, RDW Coeff of Jayjay 12.9, Plt Count 228, MPV 10.5, Immature Gran % (Auto) 0.600, Neut % (Auto) 89.2 H, Lymph % (Auto) 7.9 L, [place] % (Auto) 1.9, Eos % (Auto) 0.1, Baso % (Auto) 0.3, Absolute Neuts (auto) 8.4 H, Absolute Lymphs (auto) 0.74 L, Nucleated RBC % 0 02/14/22 05:06: WBC 10.4, RBC 3.06 L, Hgb 8.7 L, Hct 27.5 L, MCV 89.9, MCH 28.4, MCHC 31.6 L, RDW Std Deviation 42.5, RDW Coeff of Jayjay 13.2, Plt Count 271, MPV 11.0 ROS Constitutional Constitutional: Reports systems reviewed and no addt'l complaints, except as documented Cardiovascular Cardiovascular: Denies chest pain, dizziness, dyspnea or irregular heart rhythm Respiratory/Chest Respiratory/Chest: Denies cough, pain on inspiration or shortness of breath at rest Gastrointestinal Gastrointestinal: Denies abdominal pain, nausea or vomiting Genitourinary Genitourinary: Denies burning urination Musculoskeletal Musculoskeletal: Denies muscle cramps, muscle spasms or muscle weakness Neurologic Neurologic: Denies confusion, dizziness, headache(s) or lack of coordination Psychiatric Psychiatric: Denies anxiety, behavioral changes or depression Physical Exam HEENT normocephalic Resp normal respiratory effort and normal air movement GI soft to palpation, non-tender and non-distended Rectal Exam: other Other Details: Incision is clean, dry, and intact no CVA tenderness Extremity normal to inspection General Extremity: edema bilateral (trace ) Assessment & Plan (1) Status post hysterectomy: PLAN: patient is s/p robotic assisted vaginal delivery POD 1 1. routine ERAS protocol postop care- increase ambulation, encourage oral intake and oral control of pain. scds for dvt prophylaxis, patient stable but would like to keep until at least this afternoon to repeat her CBC. She had a 700 ebl due to transition from robot to vaginal surgery. There was oozing at the vaginal cuff that was minimal and fibrillar was used. If hg stabilizes today will discuss dc. If drops significantly into 7 range will discuss transfusion and futher monitoring. Imaging is another option, however pt appears hemodynamically stable currently.
[2022-02-14] MEDS: DiphenhydrAMINE 25 MG Capsule PO (10:51)
[2022-02-14 12:38] LABS: Hematocrit 30.1 % (37-47); Hemoglobin 9.6 g/dL (12.0-15.0); Mean Corp Hgb Conc 31.9 g/dL (32-36); Mean Corpuscular Hgb 28.8 pg (27.0-32.0); Mean Corpuscular Volume 90.4 fL (81-99); Mean Platelet Vol. 10.9 fl (6.2-12.0); Platelet Count 286 K/mm3 (150-450); RBC Distribution Width CV 13.2 % (11.6-14.6); Red Blood Count 3.33 M/mm3 (4.2-5.4)
--- NOTE | 2022-02-14 13:08 | PCM.PN.BLA ---
Progress Note pt is sitting up eating lunch and passing gas. her hg is up to 9.7 and she is asymptomatic plan for dc to home today. lc edge now
== END 2022-02-14 16:30 | disposition home or self-care (01) ==
LOC: SDC 14:30 → MS3 14:30
PROVIDERS: Anesthesiology; Admitting Provider Obstetrics & Gynecology; PCP Internal Medicine; Referring Provider Obstetrics & Gynecology; Visit Provider Obstetrics & Gynecology
PROC: 0UT90ZZ Resection of Uterus, Open Approach (ICD-10-PCS; CPT 58552; principal; 2022-02-13 07:10)
DX: N93.9 Abnormal uterine and vaginal bleeding, unspecified (principal); N85.2 Hypertrophy of uterus; Z79.899 Other long term (current) drug therapy; F41.9 Anxiety disorder, unspecified; K21.9 Gastro-esophageal reflux disease without esophagitis; Z80.41 Family history of malignant neoplasm of ovary; Z80.49 Family history of malignant neoplasm of other genital organs; Z80.3 Family history of malignant neoplasm of breast
CPT/HCPCS: 58552; S2900; 00944; 36415; 80076; 81025; 82962; 83735; 85025; 85027; 85610; 85730; 86850; 86900; 86901; 88307; 96360; 96361; 99218; 99251; J7120; G0378; G0463; J2405; J3475

== ENCOUNTER → 2022-05-15 | Outpatient (CLI) | payer BC, SELFPAY ==
--- NOTE | 2022-05-15 09:33 | RAD_ITS ---
STUDY: X-RAY - ESOPHAGUS (BARIUM SWALLOW) WITH FLUOROSCOPY REASON FOR EXAM: Female, 36 years old. DYSPHAGIA TECHNIQUE: 23 view(s) of the esophagus were obtained following swallowing of barium. FLUOROSCOPY TIME (if supplied): (54 seconds) minutes/seconds. 23.3 mGy COMPARISON: None. FINDINGS: There is no demonstrated esophageal foreign body. There is no demonstrated stricture or mucosal abnormality. Normal gastroesophageal junction, without a demonstrated hiatal hernia. The patient ingested a 12 mm tablet of barium without any difficulty. Normal visualized aortic arch and descending thoracic aorta. Normal visualized pulmonary parenchyma. Normal visualized osseous structures of the thorax. RAD/Esophagus Dual Contrast IMPRESSION: Normal plain film x-ray examination (barium swallow) of the esophagus. Electronically Signed: Breezy Zarate MD at 10:15 EDT ,
== END | disposition home or self-care (01) ==
PROVIDERS: PCP Internal Medicine; Referring Provider Otolaryngology; Visit Provider Otolaryngology
DX: R13.10 Dysphagia, unspecified (principal)
CPT/HCPCS: 74221

== ENCOUNTER → 2024-06-24 | Outpatient (CLI) | payer BC, SELFPAY ==
[2024-06-26 07:08] LABS: Chlamydia By Nucleic Acid AMP Negative (Negative); Gonococcus By Nucleic Acid AMP Negative (Negative)
== END | disposition home or self-care (01) ==
LOC: LABSPEC 11:37
PROVIDERS: PCP Internal Medicine; Referring Provider Nurse Practitioner Family; Visit Provider Nurse Practitioner Family
DX: N89.8 Other specified noninflammatory disorders of vagina (principal)
CPT/HCPCS: 87070; 87205; 87491; 87591

== ENCOUNTER → 2024-12-24 | Outpatient (CLI) | payer MEDICAID, SELFPAY | END | disposition home or self-care (01) | LOC: LABSPEC 16:16 | PROVIDERS: PCP Internal Medicine; Visit Provider Nurse Practitioner Family | DX: R10.20 Pelvic and perineal pain unspecified side (principal) | CPT/HCPCS: 87086 ==

== ENCOUNTER → 2025-01-15 | Outpatient (CLI) | payer MEDICAID, SELFPAY ==
--- NOTE | 2025-01-15 15:06 | US_ITS ---
PROCEDURE: PELVIC W/ TRANSVAGINAL REASON FOR EXAM: PELVIC PAIN TECHNIQUE: Procedure Code: [id number] Modality: US Procedure: PELVIC W/ TRANSVAGINAL COMPARISON: None FINDINGS: Measurements: Status post hysterectomy. Right Ovary: 4.1 cm x 2.8 cm x 2.6 cm with a volume of 15.3 mL. Left Ovary: 2.6 cm x 3.5 cm x 2.3 cm with a volume of 11.1 mL. TRANSABDOMINAL: Right ovary: Normal size and echotexture. Left ovary: Normal size and echotexture. Other: No large pelvic mass identified. Transvaginal sonography was performed to look for the nonvisualized ovary or ovaries. TRANSVAGINAL: Status post hysterectomy. Right ovary: Normal size and echotexture. Left ovary: Normal size and echotexture. Other adnexal findings: None. Cul-de-sac: No free intraperitoneal fluid identified. Tenderness: No tenderness US/Pelvic w/ Transvaginal IMPRESSION: Status post hysterectomy. No abnormality is seen. Reading Location: [place] [id number]
== END | disposition home or self-care (01) ==
LOC: US 15:02
PROVIDERS: PCP Internal Medicine; Referring Provider Nurse Practitioner Family; Visit Provider Nurse Practitioner Family
DX: R10.20 Pelvic and perineal pain unspecified side (principal)
CPT/HCPCS: 76830; 76856